=== PATIENT | female | born 1995 | race Two or more races ===

== ENCOUNTER 2021-02-01 15:06 | Emergency (ER) | payer BC, OTHER ==
[~2021-02-01] VITALS: Ht 162.6 cm; Wt 59.0 kg
[2021-02-01] MEDS ORDERED: LORazepam 2MG/ML-1ML VIAL IV ONE (15:15)
[2021-02-01] MEDS ORDERED: SODIUM CHLORIDE 0.9% 1,000 ML IV ONE (16:00)
[2021-02-01] MEDS ORDERED: SODIUM CHLORIDE 0.9% 1,000 ML IVB ONE (16:00)
[2021-02-01 16:39] LABS: Basophils # (auto) 0 10 ^3/uL (0-0.2); Basophils % (auto) 0.2 % (0.0-2.0); Eosinophils # (auto) 0.1 10 ^3/uL (0-0.8); Eosinophils % (auto) 0.7 % (0.0-7.0); Hemoglobin 13.4 g/dL (12.2-16.2); Lymphocytes # (auto) 2.1 10 ^3/uL (0.4-5.4); Lymphocytes % (auto) 22.2 % (10.0-50.0); Mean Corpuscular Hgb Conc. 34.4 g/dL (32.0-36.0); Mean Corpuscular Volume 90.3 fL (80.0-100.0); Monocytes # (auto) 0.6 10 ^3/uL (0-1.3); Monocytes % (auto) 6.6 % (0.0-12.0); Neutrophils # (auto) 6.7 10 ^3/uL (1.6-8.6); Neutrophils % (auto) 70.3 % (37.0-80.0); Red Blood Cells 4.32 10^6/uL (4.0-5.20); Red Cell Distribution Width 12.4 % (11.8-14.3); White Blood Cell 9.5 10^3/uL (4.4-10.8)
[2021-02-01 16:54] LABS: Albumin 3.4 g/dL (3.4-5.0); Anion Gap 8 (5-15); Blood Urea Nitrogen 9 mg/dL (7-18); Calcium 7.9 mg/dL (8.5-10.1); Carbon Dioxide 23 mmol/L (21-32); Chloride 109 mmol/L (98-107); Glucose 141 mg/dL (74-106); Potassium 3.5 mmol/L (3.5-5.1); Sodium 140 mmol/L (136-145)
[2021-02-01 16:59] LABS: Alanine Aminotransferase 27 U/L (13-56); Alkaline Phosphatase 52 U/L (45-117); Aspartate Aminotransferase 21 U/L (15-37); BUN/Creatinine Ratio 11.1; Bilirubin, Total 0.2 mg/dL (0.2-1.0); GFR African American 113 mL/min; GFR Non-African American 93 mL/min
[2021-02-01 17:10] LABS: Beta HCG, Quantitative < 1 mlU/mL (1-3); Thyroid Stimulating Hormone 0.73 uIU/mL (0.358-3.74)
[2021-02-01 18:48] LABS: Urine Bacteria FEW /hpf (None Seen); Urine Blood Negative /uL (Negative); Urine Specific Gravity 1.012 (1.001-1.035); Urine WBC 1 /hpf (0 - 5)
[2021-02-01 20:00] VITALS: BP 113/74
== END 2021-02-01 20:59 | disposition home or self-care (01) ==
LOC: EDBD 15:06 → ER 15:07
DX: I47.1 Supraventricular tachycardia (principal); F41.8 Other specified anxiety disorders; R73.9 Hyperglycemia, unspecified; F12.10 Cannabis abuse, uncomplicated; Z90.89 Acquired absence of other organs
CPT/HCPCS: 36415; 71046; 80053; 81001; 83735; 84443; 84484; 84702; 85025; 85379; 93005; 96361; 96374; 99285; J2060; J7030